=== PATIENT | female | born 1995 | race Hispanic/Latino ===

== ENCOUNTER 2018-12-08 19:18 | Emergency (ER) | payer BC ==
[2018-12-08 19:27] VITALS: BMI 24.5
[2018-12-08 19:30] VITALS: PULSE 90; RESP 16
[2018-12-08 20:14] LABS: SQUAMOUS EPITHIAL 2 /hpf (0-5); URINE BILIRUBIN NEGATIVE (NEGATIVE); URINE BLOOD NEGATIVE (NEGATIVE); URINE CLARITY CLEAR (Clear); URINE COLOR COLORLESS (YELLOW); URINE GLUCOSE (UA) NEG (NEGATIVE); URINE LEUKOCYTE ESTERASE TRACE Leu/uL (Negative); URINE PROTEIN NEGATIVE (NEGATIVE); URINE UROBILINOGEN 0.2-1.0 mg/dL (0.2-1.0)
[2018-12-08 20:28] LABS: BASO % 0.2 % (0.0-2.0); EOS # 0.1 K/uL (0.0-0.7); EOS % 1.3 % (0.0-4.0); HEMOGLOBIN 13.8 g/dL (12.0-16.0); LYMPH # 1.9 K/uL (1.0-4.3); LYMPH % 22.5 % (20.0-40.0); MEAN CORPUSCULAR HEMOGLOBIN 31.9 pg (27.0-31.0); MEAN CORPUSCULAR HGB CONC 35.8 g/dL (33.0-37.0); MEAN PLATELET VOLUME 8.1 fl (7.2-11.7); MONO # 0.4 K/uL (0.0-0.8); MONO % 5.2 % (0.0-10.0); NEUT # 6.1 K/uL (1.8-7.0); NEUT % 70.8 % (50.0-75.0); NRBC % 0.1 % (0.0-0.0); RBC 4.33 Mil/uL (3.80-5.20); RED CELL DISTRIBUTION WIDTH 12.8 % (11.5-14.5); WHITE BLOOD COUNT 8.6 K/uL (4.8-10.8)
--- NOTE | 2018-12-08 20:30 | ED PDOC ---
Syncope/Near Syncope/Dizziness Time Seen by Provider: 12/08/18 19:35 Chief Complaint (Nursing): Dizziness/Lightheaded Chief Complaint (Provider): Weakness, Near Syncope History Per: Patient History/Exam Limitations: no limitations Onset/Duration Of Symptoms: Intermittent Episodes Current Symptoms Are (Timing): Intermittent Episodes Additional Complaint(s): 22 year old female with history of what she calls "recurrent hypoglycemia" presents to the ED for evaluation of weakness associated with a mild headache. Patient states that two weeks ago she had a brief syncopal episode and usually gets a sense when she will have one, so will try to eat / drink orange juice. T fozia, she notes she had this feeling all day, but after drinking some Gatorade, it resolved. Denies any associated chest pain, shortness of breath, fever, or cough. PMD: none provided Past Medical History Reviewed: Historical Data, Nursing Documentation, Vital Signs Vital Signs: Last Vital Signs Temp 98.7 F 12/08/18 19:27 Pulse 90 12/08/18 19:27 Resp 16 12/08/18 19:27 BP 129/84 12/08/18 19:27 Pulse Ox 100 12/08/18 19:27 - Medical History Other PMH: possible hypoglycemia - Surgical History Surgical History: No Surg Hx - Family History Family History: States: Unknown Family Hx - Social History Current smoker - smoking cessation education provided: No Alcohol: None Drugs: Denies - Home Medications Home Medications: Ambulatory Orders Medication Instructions Recorded Norethindrone-Ethinyl Estrad 1 tab PO DAILY 12/08/18 [Nortrel 0.5-35-28 Tablet] - Allergies Allergies/Adverse Reactions: Allergies Allergy/AdvReac Type Severity Reaction Status Date / Time doxycycline Allergy ANAPHYLAXIS Verified 12/08/18 19:27 egg Allergy FATIGUE Verified 12/08/18 19:27 gluten Allergy VOMITING Verified 12/08/18 19:27 Review of Systems ROS Statement: Except As Marked, All Systems Reviewed And Found Negative Constitutional: Negative for: Fever Cardiovascular: Negative for: Chest Pain Respiratory: Negative for: Cough, Shortness of Breath Neurological: Positive for: Weakness, Headache (mild), Other (syncopal event 2 weeks ago; near syncope today) Physical Exam - Reviewed Nursing Documentation Reviewed: Yes Vital Signs Reviewed: Yes - Physical Exam Appears: Positive for: No Acute Distress Head Exam: Positive for: ATRAUMATIC, NORMAL INSPECTION, NORMOCEPHALIC Skin: Positive for: Normal Color, Warm, Dry Eye Exam: Positive for: EOMI, Normal appearance, PERRL ENT: Positive for: Normal ENT Inspection Neck: Positive for: Normal, Painless ROM, Supple Cardiovascular/Chest: Positive for: Regular Rate, Rhythm Respiratory: Positive for: Normal Breath Sounds. Negative for: Respiratory Distress Gastrointestinal/Abdominal: Positive for: Normal Exam, Soft. Negative for: Tenderness Back: Positive for: Normal Inspection Extremity: Positive for: Normal ROM (all extremities) Neurological/Psych: Positive for: Awake, Alert, Symmetric/Intact Strength (5/5 x4 extremities), Oriented (x3). Negative for: Motor/Sensory Deficits - Laboratory Results Result Diagrams: 12/08/18 20:24 12/08/18 20:24 Lab Results: Urine Color Colorless (YELLOW) 12/08/18 20:08 Urine Clarity Clear (Clear) 12/08/18 20:08 Urine pH 7.0 (5.0-8.0) 12/08/18 20:08 Ur Specific Mckenna 1.005 (1.003-1.030) 12/08/18 20:08 Urine Protein Negative mg/dL (NEGATIVE) 12/08/18 20:08 Urine Glucose (UA) Neg mg/dL (NEGATIVE) 12/08/18 20:08 Urine Ketones Negative mg/dL (NEGATIVE) 12/08/18 20:08 Urine Blood Negative (NEGATIVE) 12/08/18 20:08 Urine Nitrate Negative (NEGATIVE) 12/08/18 20:08 Urine Bilirubin Negative (NEGATIVE) 12/08/18 20:08 Urine Urobilinogen 0.2-1.0 mg/dL (0.2-1.0) 12/08/18 20:08 Ur Leukocyte Esterase Trace Eric/uL (Negative) 12/08/18 20:08 Urine RBC (Auto) < 1 /hpf (0-3) 12/08/18 20:08 Urine Microscopic WBC 1 /hpf (0-5) 12/08/18 20:08 Ur Squamous Epith Cells 2 /hpf (0-5) 12/08/18 20:08 - ECG O2 Sat by Pulse Oximetry: 100 (RA) Pulse Ox Interpretation: Normal Medical Decision Making Medical Decision Making: Time: 1957 Initial Impression: 22 year old female with generalized weakness in setting of possible recurrent hypoglycemia Initial Plan: --EKG --Alcohol serum --CMP --Drug screen --U-preg --U-dip --CBC with differential --Orthostatic BP --Urinalysis 2125 Labs reviewed with no clinically significant abnormalities. Orthostatic blood pressure and heart rate within normal ranges. Stable for discharge with diagnosis of non-specific weakness and hypoglycemia, encouraged to follow up with PMD. Return parameters discussed and patient verbalized understanding and agreement. Scribe Attestation: Documented by Leslie Falcon, acting as a scribe for Donnie Cruz MD. Provider Scribe Attestation: All medical record entries made by the Scribe were at my direction and personally dictated by me. I have reviewed the chart and agree that the record accurately reflects my personal performance of the history, physical exam, medical decision making, and the department course for this patient. I have also personally directed, reviewed, and agree with the discharge instructions and disposition. Disposition - Clinical Impression Clinical Impression: Weakness, Hypoglycemia Counseled Patient/Family Regarding: Studies Performed, Diagnosis, Need For Followup - Disposition Referrals: [facility] [Outside] Disposition: Routine/Home Disposition Time: 21:26 Condition: STABLE Instructions: Low Blood Sugar, Adult (DC), Generalized Weakness, Weakness (ED) Forms: [employer] (Hungarian)
[2018-12-08 20:38] LABS: ALB/GLOB RATIO 1.3 (1.0-2.1); ALBUMIN 4.9 g/dL (3.5-5.0); ALT/SGPT 18 U/L (9-52); AST/SGOT 29 U/L (14-36); BLOOD UREA NITROGEN 15 mg/dl (7-17); CALCIUM 10.3 mg/dL (8.4-10.2); GFR NON-AFRICAN AMERICAN > 60
[2018-12-08 20:38] LABS: BARBITURATES, UR NEGATIVE (NEGATIVE); BENZODIAZEPINES, UR NEGATIVE (NEGATIVE); OPIATES, UR NEGATIVE (NEGATIVE); PHENCYCLIDINE, UR NEGATIVE (NEGATIVE)
[2018-12-08 22:37] VITALS: BP 115/73; TEMP 99.1
--- NOTE | 2018-12-09 09:17 | CARD ---
APPROVED REPORT Date of service: 12/08/2018 EKG Measurement Heart [id number] <Conclusion> Normal sinus rhythm Normal ECG
[2018-12-10 03:44] VITALS: O2SAT 100
== END 2018-12-08 22:00 | disposition home or self-care (01) ==
LOC: H.ER 19:18
DX: R53.1 Weakness (principal); E16.2 Hypoglycemia, unspecified
CPT/HCPCS: 80053; 81003; 81025; 82948; 85025; 93005; 99285; G0480